=== PATIENT | male | born 1975 | race Two or more races ===

== ENCOUNTER 2016-07-27 15:34 | Emergency (ER) | payer OTHER ==
[~2016-07-27] VITALS: Ht 167.6 cm; Wt 81.6 kg
[2016-07-27 16:05] VITALS: BP 124/80
[2016-07-27] MEDS ORDERED: Tetracaine 0.5% Opth Soln LEFT EYE ONE (16:30)
[2016-07-27] MEDS ORDERED: Fluorescein Strips ONE ×3 (16:40→16:42)
[2016-07-27] MEDS ORDERED: VIGAMOX1 DROP LEFT EYE (17:04)
--- NOTE | 2016-07-27 17:04 | Emergency Room Report ---
History of Present Illness General Chief Complaint: Eye Problems Source: Patient Present Illness HPI 41 y/o male c/o possible foreign body in left eye x 2 days ago. 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 States he irrigated his eye with copious amount of water and at time of injury pain was 9/10. States yesterday his pain was 5/10 and has no visual complaints. States today his pain has improved and is 1/10 and has no visual complaints. States he does not feel that there is a FB present but is worried his eye may be infected as he does have some mucoid discharge and erythema to left eye. States he did not want to come in but was forced to by his employer. Denies any photophobia, blurred vision, contact lens use, foreign body sensation, or visual deficits. Allergies: Coded Allergies: No Known Allergies (Unverified , 07/27/16) Patient History Past Medical History: see triage record Past Surgical History: none Pertinent Family History: none Reviewed Nursing Documentation: PMH: Agreed, PSxH: Agreed Nursing Documentation-PMH Past Medical History: No Stated History Review of Systems All Other Systems: negative except mentioned in HPI Physical Exam Vital Signs Date Time Temp Pulse Resp B/P Pulse Ox O2 Delivery O2 Flow Rate FiO2 07/27/16 15:47 98.4 81 14 124/80 93 Room Air Sp02 EP Interpretation: reviewed, normal General Appearance: no apparent distress, alert, GCS 15, non-toxic Head: normocephalic, atraumatic Eyes: left eye Scleral Injection, left eye fluoroscene uptake - conreal abraision present from 3 o'clock to 6 o'clock with out any evidence of foreign body, bilateral eye EOMI, bilateral eye PERRL, bilateral eye normal inspection ENT: normal ENT inspection Neck: full range of motion, supple/symm/no masses Respiratory: chest non-tender, lungs clear, normal breath sounds, speaking full sentences Cardiovascular #1: regular rate, rhythm, no edema Skin: normal color, no rash, warm/dry, well hydrated Medical Decision Making PA Attestation Dr. Srivastava is my supervising physician with whom patient management has been discussed with. Diagnostic Impression: Primary Impression: Corneal abrasion, left Qualified Codes: S05.02XA - Injury of conjunctiva and corneal abrasion without foreign body, left eye, initial encounter ER Course Pt. presents to the ED c/o left eye pain Ddx considered but are not limited to conjunctivitis, FB, corneal abrasion, HSV , iritis, Migraine, cluster headache, glaucoma Vital signs: are WNL, pt. is afebrile H&PE are most consistent with corneal abrasion w/o FB ORDERS: Nolasco lamp, fluorescence, visual acuity ED INTERVENTIONS: Tetracaine 2 drops left eye, irrigation of eye, ophthalmology consult. DISCHARGE: At this time pt. is stable for d/c to home. Will provide printed patient care instructions, and any necessary prescriptions. Care plan and follow up instructions have been discussed with the patient prior to discharge. Last Vital Signs Date Time Temp Pulse Resp B/P Pulse Ox O2 Delivery O2 Flow Rate FiO2 07/27/16 17:26 98.4 78 17 119/78 98 Room Air Status: unchanged Disposition: HOME, SELF-CARE Condition: Improved Physician Consult: Dr. Ray Damon Scripts Moxifloxacin HCl (Vigamox) 3 Ml Drops 1 DROP LEFT EYE THREE TIMES A DAY for 7 Days, #3 ML 0 Refills Prov: ELIZABETH JACOB 07/27/16 Referrals: RAY DAMON Patient Instructions: Corneal Abrasion Additional Instructions: Take medication as directed. Patient to follow up with biomedical equipment technician tomorrow and call [phone] to setup an appointment for tomorrow. Patient advised on symptoms of Corneal Abrasions. Advised if you think you have something in your eye, you can try to remove it. But be careful not to irritate your eye. You can also pull your upper eyelid over your lower eyelid to try to brush away the object, such as an eye lash. Do not rub or press on it. Blink a few times to see if you can remove anything that might be in your eye. If that doesnt work, rinse your eye with water once or twice. But rinsing more than a few times can make the problem worse. Patient is to go to ER right away if you have the symptoms above and your eye still hurts a lot after youve tried rinsing it. While waiting to see the doctor, you might feel better if you sit quietly in a darkened room with your eyes closed. ELIZABETH JACOB Jul 27, 2016 17:04
[2016-07-27 17:22] VITALS: BP 119/78
[2016-07-27 17:26] VITALS: BP 119/78
[2016-07-27] MEDS ORDERED: TdaP Vaccine 0.5ml Syr IM ONE (17:30)
== END 2016-07-27 17:36 | disposition home or self-care (01) ==
LOC: EMR 16:00
DX: S05.02XA Injury of conjunctiva and corneal abrasion without foreign body, left eye, initial encounter (principal); W25.XXXA Contact with sharp glass, initial encounter; Y93.9 Activity, unspecified; Y99.0 Civilian activity done for income or pay
CPT/HCPCS: 99283